=== PATIENT | female | born 1970 | race Caucasian/White ===

== ENCOUNTER 2017-07-19 07:25 | Day surgery (SDC) | payer OTHER ==
[~2017-07-19] VITALS: Ht 172.7 cm; Wt 55.6 kg
[~2017-07-19 07:25] MED LIST: ALLERGY EYE DRO10 ML BOTH EYES; ASPIRIN81 M1 PO; Ascorbic Acid,Ester- PO; CALMOSEPTINE O120 GM TP; CELLCEPT500 MG PO; Dulcolax PO; Ecotrin PO; Flexeril PO; Folvite PO; LYRICA; LYRICA50 MG PO; LYRICA75 MG PO; Levothroid,Synthroid PO; MAGOX 400400 MG PO; MIRALAX17 GM PO; Miralax, Glycolax PO; Oscal 500 w/Vitamin PO; PLAQUENIL200 MG PO; PREDNISONE10 M1 PO; PROTONIX40 MG PO; Percocet 5/325,Endoc PO; REMERON15 M2 PO; REQUIP0.25 MG PO; SYNTHROID100 MCG PO; SYNTHROID50 MCG PO; Senokot S,Pericolace PO; TYLENOL REGULA325 MG PO; Theragran PO; ZANTAC150 MG PO; ZOFRAN4 MG PO
[2017-07-19 07:50] VITALS: BP 140/70
[2017-07-19 13:54] VITALS: BP 132/67
[2017-07-19 15:52] VITALS: BP 133/77
[2017-07-19 19:21] VITALS: BP 125/70
[2017-07-19 23:00] VITALS: BP 103/57
[2017-07-20 04:59] VITALS: BP 128/74
[2017-07-20 09:07] VITALS: BP 103/75
[2017-07-20 12:07] VITALS: BP 148/77
[2017-07-20] MEDS ORDERED: PERCOCET 5/31 TABLET PO (16:57)
[2017-07-20] MEDS ORDERED: MOTRIN600 MG PO (16:57)
== END 2017-07-20 18:29 | disposition home or self-care (01) ==
LOC: SDC 07:25 → 2SOUTH 11:20 → ENRESERV 11:22 → SDC 11:30 → ENRESERV 13:14 → CANRESERV 13:14 → ENRESERV 13:15 → 3EAST 13:34 → SDC 16:13 → 3EAST 07-20 18:29
PROC: 0Y6H0Z3 Detachment at Right Lower Leg, Low, Open Approach (ICD-10-PCS; principal; 2017-07-19)
DX: T87.89 Other complications of amputation stump (principal); M81.0 Age-related osteoporosis without current pathological fracture; K21.0 Gastro-esophageal reflux disease with esophagitis; E03.9 Hypothyroidism, unspecified; M32.9 Systemic lupus erythematosus, unspecified; R63.6 Underweight; Z68.1 Body mass index [BMI] 19.9 or less, adult; Z87.891 Personal history of nicotine dependence; Z89.511 Acquired absence of right leg below knee
CPT/HCPCS: 88305; G0378; J0690; J1170; J2250; J3010; J7120; S0020